=== PATIENT | female | born 1995 | race Caucasian/White ===

== ENCOUNTER 2017-06-18 13:28 | Emergency (ER) | payer OTHER ==
[~2017-06-18] VITALS: Ht 160 cm; Wt 65.3 kg
[~2017-06-18 13:28] MED LIST: BIRTH CONTROL TAB; IBUPROFEN 800800 MG PO; LAMICTAL XR100 MG PO
[2017-06-18 14:05] LABS: ABSOLUTE BASOPHILS 0.1 thou/uL (0.0-0.2); ABSOLUTE LYMPHOCYTES 1.4 thou/uL (0.8-5.3); ABSOLUTE MONOCYTES 0.3 thou/uL (0.0-1.2); ABSOLUTE NEUTROPHILS 6.9 thou/uL (1.6-8.1); BASOPHILS 0.6 %; EOSINOPHILS 0.3 %; HEMATOCRIT 40.1 % (37.0-47.0); HEMOGLOBIN 13.7 gm/dL (12.0-15.0); LYMPHOCYTES 16.2 %; MCH 32.7 pg (26.0-34.0); MCHC 34.3 g/dL (28.0-37.0); MCV 95.4 fL (80.0-100.0); MONOCYTES 3.1 %; MPV 8.6 fl. (7.2-11.1); NUCLEATED RBCS 0 /100WBC; PLATELET COUNT* 263 thou/uL (150-400); POLYS 79.8 %; RDW-CV 12.5 % (10.5-14.5); WBC 8.6 thou/uL (4.0-11.0)
[2017-06-18 14:12] LABS: CALCIUM 8.6 mg/dL (8.5-10.1); POTASSIUM 3.8 mmol/L (3.5-5.1)
[2017-06-18 14:17] LABS: ALBUMIN 3.7 g/dL (3.4-5.0); TOTAL BILIRUBIN 0.3 mg/dL (<0.1-1.0)
[2017-06-18 15:32] LABS: URINE BILIRUBIN NEGATIVE (Negative); URINE BLOOD NEGATIVE (Negative); URINE CLARITY CLEAR; URINE COLOR YELLOW; URINE GLUCOSE-RANDOM NEGATIVE (Negative); URINE KETONES NEGATIVE (Negative); URINE LEUKOCYTES-REFLEX NEGATIVE (Negative); URINE NITRITE-REFLEX NEGATIVE (Negative); URINE PROTEIN NEGATIVE (Negative); URINE SPECIFIC GRAVITY 1.015 (1.005-1.030); URINE UROBILINOGEN 0.2 E.U./dl (0.2-1.0)
[2017-06-18] MEDS ORDERED: ZOFRAN ODT4 MG DISSOLVE (16:07)
[2017-06-18 17:39] VITALS: BP 101/65
--- NOTE | 2017-06-19 16:27 | EKG ---
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
== END 2017-06-18 17:40 | disposition home or self-care (01) ==
LOC: M.ERS 13:28
PROVIDERS: Nurse Practitioner Psychiatric/Mental Health
DX: R11.2 Nausea with vomiting, unspecified (principal); R19.7 Diarrhea, unspecified